=== PATIENT | male | born 1980 | race African-American/Black ===

== ENCOUNTER 2023-06-30 07:09 | Emergency (ER) | payer MEDICAID, OTHER ==
[~2023-06-30] VITALS: Ht 185.4 cm; Wt 93.0 kg
[2023-06-30 07:15] VITALS: O2SAT 98
[2023-06-30] MEDS: MAGNESIUM/ALUMINUM HYDROXIDE/SIMETHICONE 30ML UDC PO STA (09:17)
[2023-06-30] MEDS: FAMOTIDINE 20MG TABLET PO ONE (09:30)
[2023-06-30 09:34] LABS: BASOPHILS % 1.2 % (0.0-2.0); EOSINOPHILS % 2.6 % (0.0-5.0); HEMATOCRIT. 44.1 % (42.0-52.0); HEMOGLOBIN. 15.4 g/dL (14.0-18.0); LYMPHOCYTES % 25.5 % (20.0-50.0); MEAN CORPUSCULAR HEMOGLOBIN 30.5 pg (28.0-32.0); MEAN CORPUSCULAR HGB CONC 34.8 g/dL (31.0-37.0); MEAN CORPUSCULAR VOLUME 87.6 fL (80.0-94.0); MEAN PLATELET VOLUME 7.8 fl (7.4-10.4); MONOCYTES % 7.8 % (2.0-8.0); NEUTROPHILS % 62.9 % (40.0-76.0); PLATELET 242 x1000/uL (130-400); RED BLOOD CELL COUNT 5.04 mill/uL (4.7-6.1); RED CELL DISTRIBUTION WIDTH 13.8 % (11.6-14.6); WHITE BLOOD COUNT 7.1 x1000/uL (4.5-11.0)
[2023-06-30 09:50] LABS: CHLORIDE 104 mEq/L (98-107); SODIUM 138 mEq/L (136-145)
[2023-06-30 09:51] LABS: CALCIUM 8.8 mg/dL (8.7-10.4)
[2023-06-30 09:56] LABS: GLUCOSE 100 mg/dL (70-105); UREA NITROGEN BLOOD 8 mg/dL (9-23)
[2023-06-30 09:58] LABS: ALANINE AMINOTRANSFERASE 14 IU/L (10-49); ALBUMIN 4.3 g/dL (3.2-4.8); ASPARTATE AMINOTRANSFERASE 18 IU/L (<34)
[2023-06-30 09:59] LABS: BILIRUBIN TOTAL 0.7 mg/dL (0.1-1.0); PROTEIN TOTAL 7.4 g/dL (6.0-8.3); TROPONIN I HIGH SENSITIVITY < 4 ng/L (3.0-53)
[2023-06-30 10:52] LABS: CARBON DIOXIDE 25 mEq/L (21-32)
[2023-06-30 12:30] VITALS: BP 122/78; PULSE 79; RESP 16; TEMP 98.5
== END 2023-06-30 14:36 | disposition home or self-care (01) ==
LOC: ER 07:09
DX: R07.89 Other chest pain (principal); R05.9 Cough, unspecified; Z90.49 Acquired absence of other specified parts of digestive tract
CPT/HCPCS: 36415; 71046; 80053; 83880; 84484; 85025; 93005; 99285